=== PATIENT | female | born 1980 | race Caucasian/White ===

== ENCOUNTER → 2016-10-12 | Outpatient (CLI) | payer MEDICARE, MEDICAID ==
[~2016-10-12] MED LIST: ABILIFY5 MG PO; ATARAX-DPS25 MG PO; AZATHIOPRINE50 MG PO; BACITRACIN OPH3.5 GM TP; CLARITIN10 M2 PO; LORTAB 5-325 M1 EACH PO; MIRALAX17 GM PO; PHENERGAN DPS25 MG PO; PHENTERMINE H37.5 MG PO; PRILOSEC40 MG PO; WELLBUTRIN100 MG PO; XANAX DPS0.25 MG PO; XYLOCAINE 2% JEL5 M1 TP
== END | disposition home or self-care (01) ==
LOC: PTH.S 10:30 → RAD.S 10:48
DX: Z48.89 Encounter for other specified surgical aftercare (principal); Z98.890 Other specified postprocedural states